=== PATIENT | male | born 1950 ===

== ENCOUNTER 2019-12-20 21:24 | Emergency (ER) | payer SELFPAY ==
[~2019-12-20] VITALS: Ht 175.3 cm; Wt 76.0 kg
[2019-12-20 21:40] VITALS: BP 151/81
--- NOTE | 2019-12-20 21:55 | NUR ---
Pt here for new onset of chest pain x 4 days. Pt has been ill with the flu for 2weeks. per pt his is ill at home. Pt reports substernal chest pain with radiation to his right jaw. It is described as a sharp crusshing pressure pain. Pt reports fatigue and sob with ambulation. Pt reports he is concered for a heart attack. Pt is negative at this time. pt resting in bed. awaiting further orders and vss.
--- NOTE | 2019-12-20 21:58 | NUR ---
pt given 324 asa en route by ems.
[2019-12-20] MEDS ORDERED: ASPIRIN 81 MG TABLET CHEW PO ONE (22:00)
[2019-12-20 22:18] LABS: BASOPHILS % (AUTO) 1 % (0-1); EOSINOPHILS % (AUTO) 2 % (1-7); LYMPHOCYTES # (AUTO) 2.41 x10^3/uL (1-3.4); LYMPHOCYTES % (AUTO) 23 % (22-44); MD NO; MEAN CORPUSCULAR HEMOGLOBIN 31.3 pg (27.5-34.5); MEAN CORPUSCULAR HGB CONC 33.5 g/dL (33.2-36.2); MEAN CORPUSCULAR VOLUME 93.6 fL (81-97); MEAN PLATELET VOLUME 7.4 fL (7.4-10.4); MONOCYTES % (AUTO) 10 % (2-9); NEUTROPHILS # (AUTO) 6.78 x10^3/uL (1.8-6.8); NEUTROPHILS % (AUTO) 64 % (42-75); PLATELET COUNT 469 x10^3/uL (130-400); RED BLOOD COUNT 5.11 x10^6/uL (4.38-5.82); RED CELL DISTRIBUTION WIDTH 14.5 % (9.4-14.8)
[2019-12-20 22:29] LABS: ALANINE AMINOTRANSFERASE 21 U/L (12-78); ALBUMIN 3.6 g/dL (3.4-5.0); CREATININE 1.01 mg/dL (0.7-1.3)
[2019-12-20 22:34] LABS: ALKALINE PHOSPHATASE 74 U/L (45-117); BILIRUBIN,TOTAL 0.3 mg/dL (0.2-1.0); TOTAL PROTEIN 7.9 g/dL (6.4-8.2); TROPONIN I < 0.015 ng/mL (0.000-0.045)
[2019-12-20 23:06] LABS: ANION GAP 8 mmol/L (5-15); CHLORIDE 108 mmol/L (98-107)
[2019-12-20 23:19] LABS: FREE T4 (FREE THYROXINE) 0.86 ng/dL (0.76-1.46)
--- NOTE | 2019-12-20 23:44 | NUR ---
Patient/Caregiver given discharge instructions and they have confirmed that they understand the instructions. Patient ambulatory with steady gait.
== END 2019-12-20 23:46 ==
LOC: ED 23:40
DX: R07.89 Other chest pain (principal); E89.0 Postprocedural hypothyroidism; R11.2 Nausea with vomiting, unspecified
CPT/HCPCS: 36415; 71045; 80053; 84439; 84443; 84484; 85025; 93005; 99284